=== PATIENT | male | born 1970 ===

== ENCOUNTER 2021-02-04 09:58 | Outpatient (CLI) | payer BC ==
[2021-02-04 21:35] LABS: SARS-CoV-2 PCR by NAA Not Detected (NotDetected)
== END 2021-02-04 09:59 | disposition home or self-care (01) ==
LOC: CSHLAB 09:58
PROVIDERS: ATTEND Internal Medicine Gastroenterology
DX: Z01.812 Encounter for preprocedural laboratory examination (principal); Z20.822 Contact with and (suspected) exposure to COVID-19
CPT/HCPCS: U0003; U0005

== ENCOUNTER 2021-02-09 05:59 | Day surgery (SDC) | payer BC ==
[2021-02-05 13:28] VITALS: BMI 26.2
[2021-02-09] MEDS ORDERED: Lidocaine 1% MPF 2 ML VIAL ONE (06:40)
[2021-02-09] MEDS ORDERED: Lidocaine 1% PF 5 ML VIAL ONE (07:35)
[2021-02-09] MEDS ORDERED: PROPOFOL 40 ML ONE (07:35)
== END 2021-02-09 08:08 | disposition home or self-care (01) ==
LOC: CSHSDC 05:59
PROVIDERS: ATTEND Internal Medicine Gastroenterology
PROC: 0DJD8ZZ Inspection of Lower Intestinal Tract, Via Natural or Artificial Opening Endoscopic (ICD-10-PCS; principal; 2021-02-09)
DX: Z12.11 Encounter for screening for malignant neoplasm of colon (principal); K64.8 Other hemorrhoids
CPT/HCPCS: J2704